=== PATIENT | male | born 1975 | race American Indian/Alaskan Native ===

== ENCOUNTER 2019-01-14 01:08 | Emergency (ER) | payer BC, OTHER ==
[2019-01-14] MEDS ORDERED: NACL 0.9% 500 ML IR ONE (01:57)
[2019-01-14] MEDS ORDERED: DILAUDID IV ONE (02:00)
[2019-01-14] MEDS ORDERED: TRIPLE ANTIBIOTIC TP ONE (02:00)
[2019-01-14] MEDS ORDERED: NACL 0.9% 1000 ML 1,000 ML IV ONE (02:00)
[2019-01-14] MEDS ORDERED: BOOSTRIX IM ONE (02:02)
[2019-01-14] MEDS ORDERED: TRIPLE ANTIBIOTIC TP STA (02:02)
[2019-01-14] MEDS ORDERED: DILAUDID ONE (02:05)
[2019-01-14] MEDS ORDERED: NACL 0.9% 1000 ML 1,000 ML ONE (02:06)
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
[2019-01-14 02:12] LABS: INR 0.99 (0.87-1.13)
[2019-01-14 02:13] LABS: Basophils # (Auto) 0.1 K/mm3 (0.0-0.1); Basophils % (Auto) 1.5 % (0.0-1.8); Eosinophils # (Auto) 0.1 K/mm3 (0.0-0.4); Hematocrit 38.6 % (35.5-45.6); Hemoglobin 12.8 gm/dl (11.8-15.2); Lymphocytes # (Auto) 2.6 K/mm3 (1.2-5.4); Lymphocytes % (Auto) 30.8 % (13.4-35.0); Mean Corpuscular HGB Conc 33 % (32-34); Mean Corpuscular Volume 88 fl (84-94); Monocytes # (Auto) 0.5 K/mm3 (0.0-0.8); Platelet Count 302 K/mm3 (140-440); Red Blood Count 4.41 M/mm3 (3.65-5.03); Red Cell Distribution Width 12.7 % (13.2-15.2)
[2019-01-14 02:18] LABS: Albumin 4.8 g/dL (3.9-5); Calcium 9.8 mg/dL (8.4-10.2)
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
--- NOTE | 2019-01-14 02:56 | XRay Report ---
PROCEDURE: XR KNEE 1-2V LT TECHNIQUE: 3 views of the left knee HISTORY: Trauma COMPARISONS: None FINDINGS: The bones are normally aligned and mineralized. The joints are normally aligned and well preserved. T here is no evidence of acute fracture or subluxation. The soft tissues are unremarkable. IMPRESSION: No evidence of acute fracture or subluxation This document is electronically signed by Itzel Cuenca MD., January 14 2019 02:54:31 AM ET
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
--- NOTE | 2019-01-14 03:12 | XRay Report ---
PROCEDURE: XR HAND 2V RT TECHNIQUE: 2 views of the right hand HISTORY: Trauma COMPARISONS: No priors FINDINGS: No evidence of acute fracture or dislocation. Alignment is anatomic. No radiopaque foreign bodies. IMPRESSION: No evidence of acute fracture or dislocation of the right hand.. This document is electronically signed by Ronan Robledo MD., January 14 2019 03:10:26 AM ET
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
--- NOTE | 2019-01-14 04:03 | Cat Scan Report ---
PROCEDURE: CT HEAD/BRAIN WO CON TECHNIQUE: Computerized tomography of the head was performed without contrast material. CT DOSE LENGTH PRODUCT: 920.5 mGycm HISTORY: Trauma COMPARISONS: None . FINDINGS: Unenhanced CT of the brain was performed and demonstrates no acute intracranial hemorrhage, extra-axial fluid collection, midline shift or mass effect. The ventricles and basal cisterns are no t effaced. The mastoid air cells and middle ears appear clear. There is old fractures in the medial naranjo of the left and right orbits. There is no evidence of acute sinusitis. IMPRESSION: No acute intracranial hemorrhage This document is electronically signed by Tab Mckeon MD., January 14 2019 04:01:23 AM ET
--- NOTE | 2019-01-14 04:04 | XRay Report ---
PROCEDURE: XR KNEE 1-2V RT HISTORY: Trauma FINDINGS: AP view of the right knee was acquired. No lateral view was sent. These images demonstrate no fracture of the right knee. There is mild loss of joint space in the medial compartment consistent with mild osteoarthritis. IMPRESSION: No fracture is seen on AP view of right knee This document is electronically signed by Tab Mckeon MD., January 14 2019 04:02:12 AM ET
--- NOTE | 2019-01-14 04:08 | Cat Scan Report ---
PROCEDURE: CT CHEST W CON TECHNIQUE: Computerized axial tomography of the chest was performed during the IV injection of iodin ated nonionic contrast. HISTORY: Trauma FINDINGS: Contrast-enhanced CT of the chest was performed and data was reformatted into sagittal and coronal planes There is no pneumothorax. There is some faint airspace disease in the anterior aspect of the right up per lobe, axial images 29 and 30 which could represent pulmonary contusion. No other infiltrate is se en. The thoracic aorta appears intact. There is no pleural or pericardial effusion. The sternum is intact. No fracture is seen in the thoracic spine. IMPRESSION: No pneumothorax Possible pulmonary contusion in anterior, superior aspect of right upper lobe This document is electronically signed by Tab Mckeon MD., January 14 2019 04:06:49 AM ET
--- NOTE | 2019-01-14 04:12 | Cat Scan Report ---
PROCEDURE: CT ABDOMEN PELVIS W CON TECHNIQUE: Computerized axial tomography of the abdomen and pelvis was performed after the administr ation of IV iodinated nonionic contrast. HISTORY: Trauma FINDINGS: Contrast-enhanced CT of the abdomen and pelvis was performed and data was reformatted in th e sagittal and coronal planes. The lung bases appear clear. There is fatty infiltration of the liver without suspect focal hepatic lesion. The liver, spleen, pancreas, kidneys appear intact. The adrenal glands and gallbladder are within nor mal limits. There is no hemoperitoneum. The abdominal aorta is intact. No fracture is seen in the lumbar spine Pelvis: There is a normal appendix. There is no evidence of diverticulitis. The prostate and urinary bladder are within normal limits. The bony pelvis and hips appear intact. There are some calcifications posterior to the right femoral neck which are likely heterotopic ossification. IMPRESSION: ABDOMEN: Fatty infiltration of the liver No hemoperitoneum Pelvis: The bony pelvis and hips appear intact This document is electronically signed by Tab Mckeon MD., January 14 2019 04:10:34 AM ET
--- NOTE | 2019-01-14 04:23 | XRay Report ---
PROCEDURE: XR PELVIS 1-2V TECHNIQUE: AP pelvis radiograph HISTORY: Trauma COMPARISONS: CT abdomen and pelvis of the same date FINDINGS: Symmetric hip and sacroiliac joint spaces. No displaced pelvic or proximal femur fracture. Intravenou s contrast excretion in the urinary bladder. IMPRESSION: No pelvic or proximal femur fracture identified. This document is electronically signed by Sincere Brink MD., January 14 2019 04:21:33 AM ET
[2019-01-14 04:24] LABS: Bacteria,Urine 1+ /HPF (Negative); Bilirubin,Urine NEG (Negative); Blood,Urine NEG (Negative); Color,Urine Yellow (Yellow); Mucus,Urine FEW /HPF; Protein,Urine <15 mg/dL mg/dL (Negative)
[2019-01-14 05:08] VITALS: BP 137/85
== END 2019-01-14 05:50 | disposition left against medical advice (07) ==
LOC: ED 01:08
DX: S50.312A Abrasion of left elbow, initial encounter (principal); S60.512A Abrasion of left hand, initial encounter; S60.511A Abrasion of right hand, initial encounter; S80.211A Abrasion, right knee, initial encounter; M54.6 Pain in thoracic spine; R10.9 Unspecified abdominal pain; R51 Headache; Z98.890 Other specified postprocedural states; Z88.1 Allergy status to other antibiotic agents; V23.4XXA Motorcycle driver injured in collision with car, pick-up truck or van in traffic accident, initial encounter; Y93.89 Activity, other specified; Y92.410 Unspecified street and highway as the place of occurrence of the external cause; Y99.8 Other external cause status
CPT/HCPCS: 36415; 70450; 71045; 71260; 72170; 73030; 73070; 73120; 73560; 74177; 80053; 81001; 82550; 83735; 85025; 85610; 87086; 90471; 90715; 96374; 99285; J1170; J7030; Q9967; 96361; A6250